=== PATIENT | male | born 1975 | race Two or more races ===

== ENCOUNTER 2017-07-19 17:28 | Emergency (ER) | payer OTHER ==
[2017-07-19] MEDS: IPRATRPIUM/ALBUTEROL 0.5/2.5MG 3 ML NEBU. NEB (18:23)
[2017-07-19 18:30] LABS: INFLUENZA A PATIENT NEGATIVE (NEGATIVE); INFLUENZA B PATIENT NEGATIVE (NEGATIVE); OBC FLU VALID
== END 2017-07-19 19:27 | disposition home or self-care (01) ==
LOC: ER 19:27
DX: J06.9 Acute upper respiratory infection, unspecified (principal); K12.1 Other forms of stomatitis; S46.912A Strain of unspecified muscle, fascia and tendon at shoulder and upper arm level, left arm, initial encounter; X58.XXXA Exposure to other specified factors, initial encounter; Y93.89 Activity, other specified; Y92.89 Other specified places as the place of occurrence of the external cause; Y99.8 Other external cause status
CPT/HCPCS: 73000; 87804; 87804-59; 94640; 99285; J7620

== ENCOUNTER 2017-07-25 19:02 | Emergency (ER) | payer OTHER | END 2017-07-25 21:30 | disposition home or self-care (01) | LOC: ER 19:02 | DX: M25.512 Pain in left shoulder (principal); M75.92 Shoulder lesion, unspecified, left shoulder; X50.0XXA Overexertion from strenuous movement or load, initial encounter; Y93.89 Activity, other specified; Y92.89 Other specified places as the place of occurrence of the external cause; Y99.8 Other external cause status | CPT/HCPCS: 73030; 99284 ==

== ENCOUNTER → 2019-01-22 | Outpatient (CLI) | payer OTHER ==
[2017-07-25 20:22] VITALS: BP 132/75
[~2019-01-22] MED LIST: PRED20TA PO; TRAM50TA PO
--- NOTE | 2019-01-22 09:51 | CARD ---
MR#: [id number] Date of Study: 01/22/2019 Ordering Physician: MI KIMBROUGH, Referring Physician: MI KIMBROUGH Tech: Teresa Wells RDCS APPROVED REPORT EXAM: Two-dimensional and M-mode echocardiogram with Doppler and color Doppler. Other Information Quality : GoodHR: 63bpm Rhythm : NSR INDICATION Palpitations 2D DIMENSIONS RVDd2.1 (2.9-3.5cm)Left Atrium(2D)3.9 (1.6-4.0cm) IVSd1.2 (0.7-1.1cm)Aortic Root(2D)3.1 (2.0-3.7cm) LVDd5.8 (3.9-5.9cm)LVOT Diameter2.3 (1.8-2.4cm) PWd0.9 (0.7-1.1cm)LVDs3.8 (2.5-4.0cm) FS (%) 34.1 %SV103.1 ml LVEF(%)62.4 (>50%) M-Mode DIMENSIONS Left Atrium(MM)3.75 (2.5-4.0cm)Aortic Root3.40 (2.2-3.7cm) Aortic Valve AoV Peak Mo.301.1cm/sAoV VTI71.4cm AO Peak GR.36.3mmHgLVOT Peak Mo.126.7cm/s AO Mean GR.20mmHgAVA (VMAX)1.71cm2 KASSI (VTI)1.34yp4CK P 1/2 [id number] Mitral Valve MV E Gqoeeiit78.2cm/sMV E Peak Gr.6mmHg MV DECEL [id number] A Huducxwg05.0cm/s MV E Mean Gr.3mmHgE/A Ratio0.8 Pulmonary Valve PV Peak Orczyokp465.9cm/s Tricuspid Valve TR P. Nokwbjyi651uk/sRAP LGKOYXEI2umQl TR Peak Gr.37ptLoEDVA82gfCl Pulmonary Vein S1 Xfziwcrz49.3cm/sD2 Jzohyfzy16.7cm/s LEFT VENTRICLE The Left Ventricle is mildly dilated. There is moderate concentric left ventricular hypertrophy. The left ventricular systolic function is normal and the ejection fraction is within normal range. The Ej ection Fraction is 55-60%. There is normal LV segmental wall motion. Transmitral Doppler flow pattern is Grade I-abnormal relaxation pattern. RIGHT VENTRICLE The right ventricle is normal size. There is normal right ventricular wall thickness. The right ventr icular systolic function is normal. ATRIA The left atrium is borderline dilated. The right atrium size is normal. The interatrial septum is int act with no evidence for an atrial septal defect or patent foramen ovale as noted on 2-D or Doppler i maging. AORTIC VALVE The aortic valve is mildly calcified. The aortic valve is trileaflet. Doppler and Color Flow revealed moderate aortic regurgitation. The velocites are increased across the aortic valve but the valve ope ns well with a maximum pressure gradient of 36 mmHg and mean pressure gradient of 19 mmHg. MITRAL VALVE The mitral valve is thickened but opens well. 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 No sign ificant stenosis or regurgitation. A mild mitral valve prolapse is present. There is no mitral valve stenosis. Doppler and Color-flow revealed mild mitral regurgitation. TRICUSPID VALVE The tricuspid valve is normal in structure and function. Doppler and Color Flow revealed trace to mil d tricuspid regurgitation. The PA pressure was estimated at 24 mmHg. There is no tricuspid valve prol apse or vegetation. There is no tricuspid valve stenosis. PULMONIC VALVE Doppler and Color Flow revealed trace to mild pulmonic valvular regurgitation. There is no pulmonic v alvular stenosis. GREAT VESSELS The aortic root is normal in size. The ascending aorta is normal in size. The IVC is normal in size a nd collapses >50% with inspiration. PERICARDIAL EFFUSION There is no evidence of significant pericardial effusion. Critical Notification Critical Value: No <Conclusion> There is moderate concentric left ventricular hypertrophy. The left ventricular systolic function is normal and the ejection fraction is within normal range. Th e Ejection Fraction is 55-60%. Doppler and Color Flow revealed moderate aortic regurgitation. The mitral valve is thickened but opens well. 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 No sign ificant stenosis or regurgitation. Signed by : Matt Ross, Electronically Approved : 01/22/2019 09:51:06
== END | disposition home or self-care (01) ==
LOC: ECHO 08:37
PROVIDERS: ATTEND Internal Medicine Cardiovascular Disease
DX: I08.8 Other rheumatic multiple valve diseases (principal)
CPT/HCPCS: 93306

== ENCOUNTER 2021-04-11 14:27 | Emergency (ER) | payer OTHER ==
[~2021-04-11] VITALS: Ht 157.5 cm; Wt 67.0 kg
[2021-04-11 15:50] VITALS: BP 138/65
--- NOTE | 2021-04-11 16:18 | RAD ---
CT Head W/O Contrast: History: Reason: head for three months / Spl. Instructions: / History: Comparison: none Axial images were obtained without contrast. The olsen and white matter appears normal and symmetrical for the patients age. There is no mass effe ct, extraaxial fluid collections or hydrocephalus. There is no gross bleed. There is no focal loss of olsen-white matter distinction to suggest acute ischemia, i.e. stroke. Impression: No acute findings. RS Compliance Statement: One or more of the following individualized dose reduction techniques were utilized for this examinat ion: 1. Automated exposure control 2. Adjustment of the mA and/or kV according to patient size 3. Use of iterative reconstruction technique see Electronically signed by: Sai Logan III, MD (04/11/2021 4:15 PM) [facility]
--- NOTE | 2021-04-11 17:02 | PHYS DOC ---
Past Medical History Past Medical History: No Pertinent History Past Surgical History: No Surgical History Smoking Status: Never Smoker Alcohol Use: Heavy Drug Use: None General Adult EDM: Chief Complaint: HEADACHE HPI: HPI: Patient is a 45 year old male with no significant medical history who presents the ED today complaining of intermittent episodes of mild headaches, symptoms have been going on for 3 months. Patient denies any headache in the ED right now. Denies any nausea vomiting or fever. Denies any neck pain. Denies any coughing or congestion. He states he is fully vaccinated against COVID-19. Review of Systems: Review of Systems: Constitutional: Denies fever or chills. [] Eyes: Denies change in visual acuity. [] HENT: Denies nasal congestion or sore throat. [] Respiratory: Denies cough or shortness of breath. [] Cardiovascular: Denies chest pain or edema. [] GI: Denies abdominal pain, nausea, vomiting, bloody stools or diarrhea. [] : Denies dysuria. [] Musculoskeletal: Denies back pain or joint pain. [] Integument: Denies rash. [] Neurologic: Reports headache, denies focal weakness or sensory changes. [] Psychiatric: Denies depression or anxiety. [] Heart Score: C/O Chest Pain: N/A Risk Factors: Risk Factors: DM, Current or recent (<one month) smoker, HTN, HLP, family history of CAD, obesity. Risk Scores: Score 0 - 3: 2.5% MACE over next 6 weeks - Discharge Home Score 4 - 6: 20.3% MACE over next 6 weeks - Admit for Clinical Observation Score 7 - 10: 72.7% MACE over next 6 weeks - Early Invasive Strategies Allergies: Allergies: Allergies Coded Allergies Type Severity Reaction Last Updated Verified No Known Drug Allergies 07/19/17 No Physical Exam: PE: Constitutional: Well developed, well nourished, no acute distress, non-toxic appearance. [] HENT: Normocephalic, atraumatic, bilateral external ears normal, oropharynx moist, no oral exudates, nose normal. [] Eyes: PERRLA, EOMI, conjunctiva normal, no discharge. [] Neck: Normal range of motion, no tenderness, supple, no stridor. [] Cardiovascular:Heart rate regular rhythm, no murmur [] Lungs & Thorax: Bilateral breath sounds clear to auscultation [] Abdomen: Bowel sounds normal, soft, no tenderness, no masses, no pulsatile masses. [] Skin: Warm, dry, no erythema, no rash. [] Back: No tenderness, no CVA tenderness. [] Extremities: No tenderness, no cyanosis, no clubbing, ROM intact, no edema. [] Neurologic: Alert and oriented X 3, normal motor function, normal sensory function, no focal deficits noted. Cranial nerves II through XII intact Psychologic: Affect normal, judgement normal, mood normal. [] Current Patient Data: Vital Signs: Vital Signs Date Time Temp Pulse Resp B/P (MAP) Pulse Ox O2 Delivery O2 Flow Rate FiO2 04/11/21 15:50 98.2 61 16 138/65 (89) 98 Room Air 98.2 EKG: EKG: [] Radiology/Procedures: Radiology/Procedures: []PROCEDURE: CT HEAD WO CONTRAST CT Head W/O Contrast: History: Reason: head for three months / Spl. Instructions: / History: Comparison: none Axial images were obtained without contrast. The olsen and white matter appears normal and symmetrical for the patients age. There is no mass effect, extraaxial fluid collections or hydrocephalus. There is no gross bleed. There is no focal loss of olsen-white matter distinction to suggest acute ischemia, i.e. stroke. Impression: No acute findings. RS Compliance Statement: One or more of the following individualized dose reduction techniques were utilized for this examination: 1. Automated exposure control 2. Adjustment of the mA and/or kV according to patient size 3. Use of iterative reconstruction technique see Electronically signed by: Demi Zepeda III, MD (04/11/2021 4:15 PM) [facility] DICTATED and SIGNED BY: DEMI ZEPEDA III, MD DATE: 04/11/21 [id number] 0 Course & Med Decision Making: Course & Med Decision Making Pertinent Labs and Imaging studies reviewed. (See chart for details) This is a 45-year-old male patient presented to the ED today with intermittent episodes of headaches symptoms for 3 months. No headache in the ED. CT of the head is negative. Blood pressure 138/65 with a heart rate of 61. Patient was reassured. I recommended Tylenol or Motrin for his pain. 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 Departure Departure Impression: Primary Impression: Headache Qualified Codes: R51.9 - Headache, unspecified Disposition: HOME / SELF CARE / HOMELESS Condition: STABLE Referrals: REFUGIO JACKSON MD (PCP) follow up in 1 week LJ ALCOCER MD follow up in one week Patient Instructions: Headache, FAQs Additional Instructions: You were evaluated in the emergency room for headache. Your CT of the head is negative for any acute findings. Please follow-up with your primary care doctor as well as neurologist in 1 to 2 weeks. Take the prescribed medications as ordered VICENTA KELLEY APRN Apr 11, 2021 17:02
== END 2021-04-11 17:15 | disposition home or self-care (01) ==
LOC: ER 14:27
DX: R51.9 Headache, unspecified (principal)
CPT/HCPCS: 70450; 99284-25

== ENCOUNTER 2021-05-12 11:27 | Observation (INO) | payer OTHER ==
[2021-05-12] VITALS (9 sets, daily range): BP systolic 94–122; BP diastolic 48–69
[~2021-05-12] VITALS: Ht 154.9 cm; Wt 65.9 kg
[2021-05-12] MEDS ORDERED: MORPHINE SULFATE 4 MG/ML INJ. IVP ONE (11:45)
--- NOTE | 2021-05-12 11:45 | PHYS DOC ---
Past Medical History Past Medical History: No Pertinent History Past Surgical History: No Surgical History Smoking Status: Never Smoker Alcohol Use: Heavy Drug Use: None General Adult EDM: Chief Complaint: ABDOMINAL PAIN HPI: HPI: Patient is a 45 year old [place] speaking male without pertinent past medical history who presents with left lower quadrant pain starting at 8:30 AM this morning. Has worsened consistently since. Denies nausea, vomiting, or diarrhea. Denies bloody stools. Denies dysuria, urgency, frequency, or hematuria. Tried ibuprofen which did not help his pain. No history of similar pain in the past. Review of Systems: Review of Systems: Constitutional: Denies fever or chills. [] Eyes: Denies change in visual acuity. [] HENT: Denies nasal congestion or sore throat. [] Respiratory: Denies cough or shortness of breath. [] Cardiovascular: Denies chest pain or edema. [] GI: Reports left lower quadrant abdominal pain. Denies nausea, vomiting, bloody stools or diarrhea. [] : Denies dysuria. [] Musculoskeletal: Denies back pain or joint pain. [] Integument: Denies rash. [] Neurologic: Denies headache, focal weakness or sensory changes. [] Endocrine: Denies polyuria or polydipsia. [] Lymphatic: Denies swollen glands. [] Psychiatric: Denies depression or anxiety. [] Heart Score: C/O Chest Pain: No Risk Factors: Risk Factors: DM, Current or recent (<one month) smoker, HTN, HLP, family history of CAD, obesity. Risk Scores: Score 0 - 3: 2.5% MACE over next 6 weeks - Discharge Home Score 4 - 6: 20.3% MACE over next 6 weeks - Admit for Clinical Observation Score 7 - 10: 72.7% MACE over next 6 weeks - Early Invasive Strategies Current Medications: Current Medications Medications (Trade) Dose Ordered Sig/Farzaneh Start Time Stop Time Status Last Admin Dose Admin Morphine Sulfate (Morphine Sulfate) 4 mg 1X ONCE 05/12/21 11:45 05/12/21 11:46 UNV Allergies: Allergies: Allergies Coded Allergies Type Severity Reaction Last Updated Verified No Known Drug Allergies 07/19/17 No Physical Exam: PE: Constitutional in acute distress, clutching left lower abdomen, moaning HENT: Normocephalic, atraumatic Eyes: PERRLA, EOMI, conjunctiva normal, no discharge. [] Neck: Normal range of motion, no tenderness, supple, no stridor. [] Cardiovascular:Heart rate regular rhythm, no murmur [] Lungs & Thorax: Bilateral breath sounds clear to auscultation [] Abdomen: Left lower quadrant tenderness to palpation Skin: Warm, dry, no erythema, no rash. [] Extremities: No tenderness, no cyanosis, no clubbing, ROM intact, no edema. [] Neurologic: Alert and oriented X 3, normal motor function, normal sensory function, no focal deficits noted. [] Psychologic: Affect normal, judgement normal, mood normal. [] EKG: EKG: [] Radiology/Procedures: Radiology/Procedures: [] Impression: [facility] [address] [place], [place] [id number] IMAGING REPORT Signed PATIENT: Alfred Carson ACCOUNT: [id number] : 1975 LOCATION: ER AGE: 45 SEX: M EXAM STATUS: REG ER ORD. PHYSICIAN: ZHENG ALEXANDER MD REASON: left lower quadrant pain PROCEDURE: CT ABD PELV W/ IV CONTRST ONLY CT abdomen and pelvis with contrast PQRS statement: CT scans at this facility use dose reduction including either automated exposure control, iterative reconstructions, and /or weight based radiation dosing via mA and kV modification when appropriate to reduce radiation dose to as low as reasonably achievable. HISTORY: Left lower quadrant abdominal pain. Contrast: 75 mL Omnipaque 300 intravenous contrast. Abdomen findings: Small subcentimeter hypodensity left renal upper pole too small to characterize statistically most likely a small cyst. Right kidney, adrenals, pancreas, spleen, liver and gallbladder are unremarkable. Calcified plaque of the lower abdominal aorta. There is mild cardiomegaly. No bowel obstruction. Retrocecal appendix is distended with fluid, there is a tiny subcentimeter density at its base which could be an appendicolith, the appendix has a diameter of 9 mm, there is subtle hypervascular wall enhancement of the tip of the appendix, there is quetsionable mild groundglass edema extending left lateral of the tip of the appendix best demonstrated axial images 43-47 raising the possibility of very early changes of appendicitis. No abdominal fluid or adenopathy. Pelvis findings: Bladder, prostate, rectum and bones are unremarkable. IMPRESSION: Probable early changes of acute appendicitis. See above. Electronically signed by: Sandoval Patel MD (05/12/2021 1:30 PM) [facility] [place] DICTATED and SIGNED BY: SANDOVAL PATEL MD DATE: 05/12/21 [id number] 0 Course & Med Decision Making: Course & Med Decision Making Pertinent Labs and Imaging studies reviewed. (See chart for details) Patient 45-year-old male who presents with left lower quadrant pain since 8:30 AM this morning. On arrival is in acute distress and moaning in pain. DDx includes ureterolithiasis, diverticulitis +/- perforation, abscess. Will treat pain and obtain lab, ua, ct evaluation. 1144 CT concerning for early appendicitis. WBC normal. He continues to be in significant pain, requiring multiple doses of IV narcotics. Will give zosyn, and discuss with surgery. [id number] José Miguel Disclaimer: José Miguel Disclaimer: This electronic medical record was generated, in whole or in part, using a voice recognition dictation system. Departure Departure Impression: Primary Impression: Appendicitis Disposition: ADMITTED INPATIENT Condition: STABLE Referrals: REFUGIO JACKSON MD (PCP) ZHENG ALEXANDER MD May 12, 2021 11:44
[2021-05-12 12:01] LABS: CALCIUM 8.5 mg/dL (8.5-10.1); CREATININE 0.9 mg/dL (0.7-1.3); GFR 90.4; POTASSIUM 3.9 mmol/L (3.5-5.1)
[2021-05-12 12:03] LABS: BASO % 1 % (0-3); EOS # 0.1 x10^3/uL (0.0-0.7); EOS % 1 % (0-3); HEMATOCRIT 44.7 % (39.0-53.0); HEMOGLOBIN 15.3 g/dL (13.0-17.5); LYMPH # 1.6 x10^3/uL (1.0-4.8); LYMPH % 16 % (24-48); MEAN CORPUSCULAR HEMOGLOBIN 30 pg (25-35); MEAN CORPUSCULAR HGB CONC 34 g/dL (31-37); MEAN CORPUSCULAR VOLUME 87 fL (79-100); MONO # 0.6 x10^3/uL (0.0-1.1); MONO % 6 % (0-9); NEUT # 7.3 x10^3/uL (1.8-7.7); NEUT % 76 % (31-73); PLATELET COUNT 191 x10^3/uL (140-400); RED BLOOD COUNT 5.17 x10^6/uL (4.30-5.70); RED CELL DISTRIBUTION WIDTH 12.1 % (11.5-14.5); WHITE BLOOD COUNT 9.6 x10^3/uL (4.0-11.0)
[2021-05-12 12:07] LABS: ALBUMIN 4.2 g/dL (3.4-5.0); ALBUMIN/GLOBULIN RATIO 1.1 (1.0-1.7); TOTAL BILIRUBIN 0.6 mg/dL (0.2-1.0); TOTAL PROTEIN 8.1 g/dL (6.4-8.2)
[2021-05-12] MEDS ORDERED: CONTRAST GIVEN. MC PRN (12:45)
[2021-05-12] MEDS ORDERED: IOHEXOL 300 MG/ML 100ML VIAL. IV ONE (12:45)
[2021-05-12 13:07] LABS: BILIRUBIN,URINE NEGATIVE (NEG); CLARITY,URINE CLEAR; COLOR,URINE YELLOW; NITRITE,URINE NEGATIVE (NEG); PH,URINE 6.5 (<5.0-8.0); PROTEIN,URINE NEGATIVE (NEG-TRACE); UROBILINOGEN,URINE 0.2 mg/dL (0.2 mg/dL)
[2021-05-12 13:26] LABS: BACTERIA,URINE 0 /HPF (0-FEW); RBC,URINE 0 /HPF (0-2); WBC,URINE OCC /HPF (0-4)
[2021-05-12] MEDS ORDERED: MORPHINE SULFATE 10 MG/ML VIAL. IVP ONE (13:30)
--- NOTE | 2021-05-12 13:32 | RAD ---
CT abdomen and pelvis with contrast PQRS statement: CT scans at this facility use dose reduction including either automated exposure cont rol, iterative reconstructions, and /or weight based radiation dosing via mA and kV modification when appropriate to reduce radiation dose to as low as reasonably achievable. HISTORY: Left lower quadrant abdominal pain. Contrast: 75 mL Omnipaque 300 intravenous contrast. Abdomen findings: Small subcentimeter hypodensity left renal upper pole too small to characterize sta tistically most likely a small cyst. Right kidney, adrenals, pancreas, spleen, liver and gallbladder are unremarkable. Calcified plaque of the lower abdominal aorta. There is mild cardiomegaly. No bowel obstruction. Retrocecal appendix is distended with fluid, there is a tiny subcentimeter density at i ts base which could be an appendicolith, the appendix has a diameter of 9 mm, there is subtle hyperva scular wall enhancement of the tip of the appendix, there is quetsionable mild groundglass edema exte nding left lateral of the tip of the appendix best demonstrated axial images 43-47 raising the possib ility of very early changes of appendicitis. No abdominal fluid or adenopathy. Pelvis findings: Bladder, prostate, rectum and bones are unremarkable. IMPRESSION: Probable early changes of acute appendicitis. See above. Electronically signed by: Jordan Patel MD (05/12/2021 1:30 PM) [facility]
[2021-05-12] MEDS ORDERED: ONDANSETRON PF 4 MG/2 ML VIAL. IVP PRN ×2 (14:00→15:30)
[2021-05-12] MEDS ORDERED: MORPHINE SULFATE 4 MG/ML INJ. IVP PRN (14:00)
[2021-05-12] MEDS ORDERED: PIPERACILLIN/TAZOBACTAM 4.5 GM in IV NORMAL SALINE 100ML 100 ML IV ONE (14:15)
[2021-05-12] MEDS ORDERED: BUPIVACAINE-EPI 0.5% 30 ML VIAL KIT. ONE (14:15)
[2021-05-12] MEDS ORDERED: SUCCINYLCHOLINE 200 MG/10 ML VIAL. ONE (14:47)
[2021-05-12] MEDS ORDERED: ROCURONIUM 50 MG/5 ML VIAL. ONE (14:48)
[2021-05-12] MEDS ORDERED: fentaNYL PF VIAL 100 MCG/2 ML VIAL ONE ×2 (14:49→17:00)
[2021-05-12] MEDS ORDERED: MORPHINE SULFATE 2 MG/ML INJ. IVP PRN (15:00)
[2021-05-12] MEDS ORDERED: fentaNYL PF VIAL 100 MCG/2 ML VIAL IVP PRN (15:00)
[2021-05-12] MEDS ORDERED: PROCHLORPERAZINE 10 MG/2 ML VIAL. IVP PRN (15:00)
[2021-05-12] MEDS ORDERED: HYDROmorphone 2 MG/ML VIAL IVP PRN (15:00)
[2021-05-12] MEDS ORDERED: IV RINGERS,LACTATED 1000ML 1,000 ML IV SCH (15:00)
--- NOTE | 2021-05-12 15:10 | PDOC2 ---
CONSULT Date of Consult Date of Consult DATE: 05/12/21 TIME: 15:07 Reason for Consult Reason for Consult: Abdominal pain with acute appendicitis Referring Physician Referring Physician: eleazar Identification/Chief Complaint Chief Complaint Abdominal pain Source Source: Chart review, Patient History of Present Illness Reason for Visit: 45-year-old Belgian speaking male with 18-hour history of abdominal pain coming worse came to the emergency department further evaluation. Denies any nausea or vomiting. CT scan done in the emergency department shows signs consistent with early appendicitis no evidence of rupture or abscess Past Medical History Cardiovascular: No pertinent hx Pulmonary: No pertinent hx GI: No pertinent hx Heme/Onc: No pertinent hx Hepatobiliary: No pertinent hx Psych: No pertinent hx Rheumatologic: No pertinent hx Infectious disease: No pertinent hx ENT: No pertinent hx Renal/: No pertinent hx Endocrine: No pertinent hx Dermatology: No pertinent hx Past Surgical History Past Surgical History: No pertinent history Family History Family History: No Significant Social History No ALCOHOL: heavy Drugs: None Lives: with Family Current Problem List Problem List Problems Medical Problems: (1) Appendicitis Status: Acute Current Medications Current Medications Current Medications Morphine Sulfate (Morphine Sulfate) 4 mg 1X ONCE IVP Last administered on 05/12/21at 11:53; Start 05/12/21 at 11:45; Stop 05/12/21 at 11:46; Status DC Iohexol (Omnipaque 300 Mg/ml) 75 ml 1X ONCE IV Last administered on 05/12/21at 12:36; Start 05/12/21 at 12:45; Stop 05/12/21 at 12:46; Status DC Info (CONTRAST GIVEN -- Rx MONITORING) 1 each PRN DAILY PRN MC SEE COMMENTS; Start 05/12/21 at 12:45; Stop 05/14/21 at 12:44 Morphine Sulfate (Morphine Sulfate) 5 mg 1X ONCE IVP Last administered on 05/12/21at 13:38; Start 05/12/21 at 13:30; Stop 05/12/21 at 13:31; Status DC Piperacillin Sod/ Tazobactam Sod 4.5 gm/Sodium Chloride 100 ml @ 200 mls/hr 1X ONCE IV Last administered on 05/12/21at 14:00; Start 05/12/21 at 14:15; Stop 05/12/21 at 14:44; Status DC Ondansetron HCl (Zofran) 4 mg PRN Q8HRS PRN IVP NAUSEA/VOMITING; Start 05/12/21 at 14:00; Stop 05/13/21 at 13:59 Morphine Sulfate (Morphine Sulfate) 4 mg PRN Q2HR PRN IVP PAIN; Start 05/12/21 at 14:00; Stop 05/13/21 at 13:59 Bupivacaine HCl/ Epinephrine Bitart (Sensorcain-Epi 0.5% Kit) 30 ml STK-MED ONCE .ROUTE ; Start 05/12/21 at 14:15; Stop 05/12/21 at 14:16; Status DC Succinylcholine Chloride (Anectine) 200 mg STK-MED ONCE .ROUTE ; Start 05/12/21 at 14:47; Stop 05/12/21 at 14:48; Status DC Rocuronium [place] (Zemuron) 50 mg STK-MED ONCE .ROUTE ; Start 05/12/21 at 14:48; Stop 05/12/21 at 14:48; Status DC Fentanyl Citrate (Fentanyl 2ml Vial) 100 mcg STK-MED ONCE .ROUTE ; Start 05/12/21 at 14:49; Stop 05/12/21 at 14:49; Status DC Fentanyl Citrate (Fentanyl 2ml Vial) 25 mcg PRN Q5MIN PRN IVP MILD PAIN 1-3; Start 05/12/21 at 15:00; Stop 05/13/21 at 14:59 Fentanyl Citrate (Fentanyl 2ml Vial) 50 mcg PRN Q5MIN PRN IVP MODERATE PAIN 4- 6; Start 05/12/21 at 15:00; Stop 05/13/21 at 14:59 Morphine Sulfate (Morphine Sulfate) 1 mg PRN Q10MIN PRN IVP SEVERE PAIN 7-10; Start 05/12/21 at 15:00; Stop 05/13/21 at 14:59 Ringer's Solution 1,000 ml @ 30 mls/hr Q24H IV ; Start 05/12/21 at 15:00; Stop 05/13/21 at 02:59 Hydromorphone HCl (Dilaudid) 0.5 mg PRN Q10MIN PRN IVP SEVERE PAIN 7-10, 2nd CHOICE; Start 05/12/21 at 15:00; Stop 05/13/21 at 14:59 Prochlorperazine Edisylate (Compazine) 5 mg PACU PRN PRN IVP NAUSEA, MRX1; S tart 05/12/21 at 15:00; Stop 05/13/21 at 14:59 Active Scripts Active Prednisone 20 Mg Tablet 2 Tab PO DAILY 5 Days Tramadol Hcl 50 Mg Tablet 1 Tab PO PRN Q6HRS Allergies Allergies: Coded Allergies: No Known Drug Allergies (Unverified , 07/19/17) ROS Gastrointestinal: Yes Abdominal Pain Physical Exam General: Alert, Oriented X3, Cooperative, moderate distress HEENT: Atraumatic, EOMI Lungs: Clear to auscultation, Normal air movement Heart: Regular rate, No murmurs Abdomen: Normal bowel sounds, Soft, Other (Tender to palpation right lower quadrant no peritoneal sign) Extremities: No edema Skin: No significant lesion Neuro: Normal speech Psych/Mental Status: Mental status NL Vitals VITALS Vital Signs Date Time Temp Pulse Resp B/P (MAP) Pulse Ox O2 Delivery O2 Flow Rate FiO2 05/12/21 14:55 97.0 69 16 116/67 98 Room Air 97.0 Labs Labs Laboratory Tests Test 05/12/21 11:45 05/12/21 12:55 White Blood Count 9.6 x10^3/uL (4.0-11.0) Red Blood Count 5.17 x10^6/uL (4.30-5.70) Hemoglobin 15.3 g/dL (13.0-17.5) Hematocrit 44.7 % (39.0-53.0) Mean Corpuscular Volume 87 fL (79-100) Mean Corpuscular Hemoglobin 30 pg (25-35) Mean Corpuscular Hemoglobin Concent 34 g/dL (31-37) Red Cell Distribution Width 12.1 % (11.5-14.5) Platelet Count 191 x10^3/uL (140-400) Neutrophils (%) (Auto) 76 % (31-73) Lymphocytes (%) (Auto) 16 % (24-48) Monocytes (%) (Auto) 6 % (0-9) Eosinophils (%) (Auto) 1 % (0-3) Basophils (%) (Auto) 1 % (0-3) Neutrophils # (Auto) 7.3 x10^3/uL (1.8-7.7) Lymphocytes # (Auto) 1.6 x10^3/uL (1.0-4.8) Monocytes # (Auto) 0.6 x10^3/uL (0.0-1.1) Eosinophils # (Auto) 0.1 x10^3/uL (0.0-0.7) Basophils # (Auto) 0.0 x10^3/uL (0.0-0.2) Sodium Level 139 mmol/L (136-145) Potassium Level 3.9 mmol/L (3.5-5.1) Chloride Level 101 mmol/L (98-107) Carbon Dioxide Level 30 mmol/L (21-32) Anion Gap 8 (6-14) Blood Urea Nitrogen 14 mg/dL (8-26) Creatinine 0.9 mg/dL (0.7-1.3) Estimated GFR (Cockcroft-Gault) 90.4 BUN/Creatinine Ratio 16 (6-20) Glucose Level 108 mg/dL (70-99) Calcium Level 8.5 mg/dL (8.5-10.1) Total Bilirubin 0.6 mg/dL (0.2-1.0) Aspartate Amino Transf (AST/SGOT) 34 U/L (15-37) Alanine Aminotransferase (ALT/SGPT) 43 U/L (16-63) Alkaline Phosphatase 62 U/L (46-116) Total Protein 8.1 g/dL (6.4-8.2) Albumin 4.2 g/dL (3.4-5.0) Albumin/Globulin Ratio 1.1 (1.0-1.7) Lipase 51 U/L (73-393) Urine Collection Type Unknown Urine Color Yellow Urine Clarity Clear Urine pH 6.5 (<5.0-8.0) Urine Specific [place] >=1.030 (1.000-1.030) Urine Protein Negative mg/dL (NEG-TRACE) Urine Glucose (UA) Negative mg/dL (NEG) Urine Ketones (Stick) Negative mg/dL (NEG) Urine Blood Negative (NEG) Urine Nitrite Negative (NEG) Urine Bilirubin Negative (NEG) Urine Urobilinogen Dipstick 0.2 mg/dL (0.2 mg/dL) Urine Leukocyte Esterase Negative (NEG) Urine RBC 0 /HPF (0-2) Urine WBC Occ /HPF (0-4) Urine Squamous Epithelial Cells Occ /LPF Urine Bacteria 0 /HPF (0-FEW) Laboratory Tests Test 11/18/21 11:45 05/12/21 12:55 White Blood Count 9.6 x10^3/uL (4.0-11.0) Red Blood Count 5.17 x10^6/uL (4.30-5.70) Hemoglobin 15.3 g/dL (13.0-17.5) Hematocrit 44.7 % (39.0-53.0) Mean Corpuscular Volume 87 fL (79-100) Mean Corpuscular Hemoglobin 30 pg (25-35) Mean Corpuscular Hemoglobin Concent 34 g/dL (31-37) Red Cell Distribution Width 12.1 % (11.5-14.5) Platelet Count 191 x10^3/uL (140-400) Neutrophils (%) (Auto) 76 % (31-73) Lymphocytes (%) (Auto) 16 % (24-48) Monocytes (%) (Auto) 6 % (0-9) Eosinophils (%) (Auto) 1 % (0-3) Basophils (%) (Auto) 1 % (0-3) Neutrophils # (Auto) 7.3 x10^3/uL (1.8-7.7) Lymphocytes # (Auto) 1.6 x10^3/uL (1.0-4.8) Monocytes # (Auto) 0.6 x10^3/uL (0.0-1.1) Eosinophils # (Auto) 0.1 x10^3/uL (0.0-0.7) Basophils # (Auto) 0.0 x10^3/uL (0.0-0.2) Sodium Level 139 mmol/L (136-145) Potassium Level 3.9 mmol/L (3.5-5.1) Chloride Level 101 mmol/L (98-107) Carbon Dioxide Level 30 mmol/L (21-32) Anion Gap 8 (6-14) Blood Urea Nitrogen 14 mg/dL (8-26) Creatinine 0.9 mg/dL (0.7-1.3) Estimated GFR (Cockcroft-Gault) 90.4 BUN/Creatinine Ratio 16 (6-20) Glucose Level 108 mg/dL (70-99) Calcium Level 8.5 mg/dL (8.5-10.1) Total Bilirubin 0.6 mg/dL (0.2-1.0) Aspartate Amino Transf (AST/SGOT) 34 U/L (15-37) Alanine Aminotransferase (ALT/SGPT) 43 U/L (16-63) Alkaline Phosphatase 62 U/L (46-116) Total Protein 8.1 g/dL (6.4-8.2) Albumin 4.2 g/dL (3.4-5.0) Albumin/Globulin Ratio 1.1 (1.0-1.7) Lipase 51 U/L (73-393) Urine Collection Type Unknown Urine Color Yellow Urine Clarity Clear Urine pH 6.5 (<5.0-8.0) Urine Specific [place] >=1.030 (1.000-1.030) Urine Protein Negative mg/dL (NEG-TRACE) Urine Glucose (UA) Negative mg/dL (NEG) Urine Ketones (Stick) Negative mg/dL (NEG) Urine Blood Negative (NEG) Urine Nitrite Negative (NEG) Urine Bilirubin Negative (NEG) Urine Urobilinogen Dipstick 0.2 mg/dL (0.2 mg/dL) Urine Leukocyte Esterase Negative (NEG) Urine RBC 0 /HPF (0-2) Urine WBC Occ /HPF (0-4) Urine Squamous Epithelial Cells Occ /LPF Urine Bacteria 0 /HPF (0-FEW) Assessment/Plan Assessment/Plan Acute appendicitis by CT scan and clinical symptoms plan for laparoscopic appendectomy RAPHAEL AWAD MD May 12, 2021 15:10
--- NOTE | 2021-05-12 15:25 | PDOC1 ---
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 Has worsened consistently since. Denies nausea, vomiting, or diarrhea. Denies bloody stools. Denies dysuria, urgency, frequency, or hematuria. Tried ibuprofen which did not help his pain. No history of similar pain in the past. Past Medical/Surgical History: PMH/PSH: Denies Allergies: Allergies: Coded Allergies: No Known Drug Allergies (Unverified , 07/19/17) Family History: Family History: No known per patient Social History: Social History: Denies alcohol tobacco drug use Current Medications: Current Medications Current Medications Morphine Sulfate (Morphine Sulfate) 4 mg 1X ONCE IVP Last administered on 05/12/21at 11:53; Start 05/12/21 at 11:45; Stop 05/12/21 at 11:46; Status DC Iohexol (Omnipaque 300 Mg/ml) 75 ml 1X ONCE IV Last administered on 05/12/21at 12:36; Start 05/12/21 at 12:45; Stop 05/12/21 at 12:46; Status DC Info (CONTRAST GIVEN -- Rx MONITORING) 1 each PRN DAILY PRN MC SEE COMMENTS; Start 05/12/21 at 12:45; Stop 05/14/21 at 12:44 Morphine Sulfate (Morphine Sulfate) 5 mg 1X ONCE IVP Last administered on 05/12/21at 13:38; Start 05/12/21 at 13:30; Stop 05/12/21 at 13:31; Status DC Piperacillin Sod/ Tazobactam Sod 4.5 gm/Sodium Chloride 100 ml @ 200 mls/hr 1X ONCE IV Last administered on 05/12/21at 14:00; Start 05/12/21 at 14:15; Stop 05/12/21 at 14:44; Status DC Ondansetron HCl (Zofran) 4 mg PRN Q8HRS PRN IVP NAUSEA/VOMITING; Start 05/12/21 at 14:00; Stop 05/13/21 at 13:59 Morphine Sulfate (Morphine Sulfate) 4 mg PRN Q2HR PRN IVP PAIN; Start 05/12/21 at 14:00; Stop 05/13/21 at 13:59 Bupivacaine HCl/ Epinephrine Bitart (Sensorcain-Epi 0.5% Kit) 30 ml STK-MED ONCE .ROUTE ; Start 05/12/21 at 14:15; Stop 05/12/21 at 14:16; Status DC Succinylcholine Chloride (Anectine) 200 mg STK-MED ONCE .ROUTE ; Start 05/12/21 at 14:47; Stop 05/12/21 at 14:48; Status DC Rocuronium [place] (Zemuron) 50 mg STK-MED ONCE .ROUTE ; Start 05/12/21 at 14:48; Stop 05/12/21 at 14:48; Status DC Fentanyl Citrate (Fentanyl 2ml Vial) 100 mcg STK-MED ONCE .ROUTE ; Start 05/12/21 at 14:49; Stop 05/12/21 at 14:49; Status DC Fentanyl Citrate (Fentanyl 2ml Vial) 25 mcg PRN Q5MIN PRN IVP MILD PAIN 1-3; Start 05/12/21 at 15:00; Stop 05/13/21 at 14:59 Fentanyl Citrate (Fentanyl 2ml Vial) 50 mcg PRN Q5MIN PRN IVP MODERATE PAIN 4- 6; Start 05/12/21 at 15:00; Stop 05/13/21 at 14:59 Morphine Sulfate (Morphine Sulfate) 1 mg PRN Q10MIN PRN IVP SEVERE PAIN 7-10; Start 05/12/21 at 15:00; Stop 05/13/21 at 14:59 Ringer's Solution 1,000 ml @ 30 mls/hr Q24H IV ; Start 05/12/21 at 15:00; Stop 05/13/21 at 02:59 Hydromorphone HCl (Dilaudid) 0.5 mg PRN Q10MIN PRN IVP SEVERE PAIN 7-10, 2nd CHOICE; Start 05/12/21 at 15:00; Stop 05/13/21 at 14:59 Prochlorperazine Edisylate (Compazine) 5 mg PACU PRN PRN IVP NAUSEA, MRX1; Start 05/12/21 at 15:00; Stop 05/13/21 at 14:59 Active Scripts Active Prednisone 20 Mg Tablet 2 Tab PO DAILY 5 Days Tramadol Hcl 50 Mg Tablet 1 Tab PO PRN Q6HRS ROS: Review of Systems Review of System Could not obtain from myself Physical Exam: Vital Signs: Vital Signs Date Time Temp Pulse Resp B/P (MAP) Pulse Ox O2 Delivery O2 Flow Rate FiO2 05/12/21 14:55 97.0 69 16 116/67 98 Room Air 97.0 Physcial Exam: GEN: mild distress HEENT: Normal cephalic, atraumatic, external auditory canals are patent EYES: Extraocular muscles are intact, pupil are equally round and reactive to light and accommodation MUSCULOSKELETAL: Well developed , well nourished, good range of motion ENDOCRINE: No thyromegaly was palpated LYMPHATICS: No cervical chain or axillary nodes were noted HEMATOPOIETIC: No bruising NECK: Supple, no JVD, no thyromegaly was noted LUNGS: Clear to auscultation in all lung lara without rhonchi or wheezing HEART: RRR, S1, S2 present. Peripheral pulses intact, no obvious murmurs noted ABDOMEN: diffuse tenderness particularly lower quadrants, normal bowel sounds; EXTREMITIES: Without clubbing, cyanosis, or edema. Pedal pulses intact. Negative Homans sign NEUROLOGIC: Normal speech and tone. A&O x 3, moves all extremities, no obvious focal deficits PSYCHIATRIC: Normal affect, normal mood. Stable SKIN: No ulcerations or rashes, good skin turgor, no jaundice VASCULAR: Good capillary refill, neurovascular bundle appears to be intact Labs: Labs: Laboratory Tests Test 05/12/21 11:45 05/12/21 12:55 White Blood Count 9.6 x10^3/uL (4.0-11.0) Red Blood Count 5.17 x10^6/uL (4.30-5.70) Hemoglobin 15.3 g/dL (13.0-17.5) Hematocrit 44.7 % (39.0-53.0) Mean Corpuscular Volume 87 fL (79-100) Mean Corpuscular Hemoglobin 30 pg (25-35) Mean Corpuscular Hemoglobin Concent 34 g/dL (31-37) Red Cell Distribution Width 12.1 % (11.5-14.5) Platelet Count 191 x10^3/uL (140-400) Neutrophils (%) (Auto) 76 % (31-73) Lymphocytes (%) (Auto) 16 % (24-48) Monocytes (%) (Auto) 6 % (0-9) Eosinophils (%) (Auto) 1 % (0-3) Basophils (%) (Auto) 1 % (0-3) Neutrophils # (Auto) 7.3 x10^3/uL (1.8-7.7) Lymphocytes # (Auto) 1.6 x10^3/uL (1.0-4.8) Monocytes # (Auto) 0.6 x10^3/uL (0.0-1.1) Eosinophils # (Auto) 0.1 x10^3/uL (0.0-0.7) Basophils # (Auto) 0.0 x10^3/uL (0.0-0.2) Sodium Level 139 mmol/L (136-145) Potassium Level 3.9 mmol/L (3.5-5.1) Chloride Level 101 mmol/L (98-107) Carbon Dioxide Level 30 mmol/L (21-32) Anion Gap 8 (6-14) Blood Urea Nitrogen 14 mg/dL (8-26) Creatinine 0.9 mg/dL (0.7-1.3) Estimated GFR (Cockcroft-Gault) 90.4 BUN/Creatinine Ratio 16 (6-20) Glucose Level 108 mg/dL (70-99) Calcium Level 8.5 mg/dL (8.5-10.1) Total Bilirubin 0.6 mg/dL (0.2-1.0) Aspartate Amino Transf (AST/SGOT) 34 U/L (15-37) Alanine Aminotransferase (ALT/SGPT) 43 U/L (16-63) Alkaline Phosphatase 62 U/L (46-116) Total Protein 8.1 g/dL (6.4-8.2) Albumin 4.2 g/dL (3.4-5.0) Albumin/Globulin Ratio 1.1 (1.0-1.7) Lipase 51 U/L (73-393) Urine Collection Type Unknown Urine Color Yellow Urine Clarity Clear Urine pH 6.5 (<5.0-8.0) Urine Specific [place] >=1.030 (1.000-1.030) Urine Protein Negative mg/dL (NEG-TRACE) Urine Glucose (UA) Negative mg/dL (NEG) Urine Ketones (Stick) Negative mg/dL (NEG) Urine Blood Negative (NEG) Urine Nitrite Negative (NEG) Urine Bilirubin Negative (NEG) Urine Urobilinogen Dipstick 0.2 mg/dL (0.2 mg/dL) Urine Leukocyte Esterase Negative (NEG) Urine RBC 0 /HPF (0-2) Urine WBC Occ /HPF (0-4) Urine Squamous Epithelial Cells Occ /LPF Urine Bacteria 0 /HPF (0-FEW) Laboratory Tests Test 05/12/21 11:45 05/12/21 12:55 White Blood Count 9.6 x10^3/uL (4.0-11.0) Red Blood Count 5.17 x10^6/uL (4.30-5.70) Hemoglobin 15.3 g/dL (13.0-17.5) Hematocrit 44.7 % (39.0-53.0) Mean Corpuscular Volume 87 fL (79-100) Mean Corpuscular Hemoglobin 30 pg (25-35) Mean Corpuscular Hemoglobin Concent 34 g/dL (31-37) Red Cell Distribution Width 12.1 % (11.5-14.5) Platelet Count 191 x10^3/uL (140-400) Neutrophils (%) (Auto) 76 % (31-73) Lymphocytes (%) (Auto) 16 % (24-48) Monocytes (%) (Auto) 6 % (0-9) Eosinophils (%) (Auto) 1 % (0-3) Basophils (%) (Auto) 1 % (0-3) Neutrophils # (Auto) 7.3 x10^3/uL (1.8-7.7) Lymphocytes # (Auto) 1.6 x10^3/uL (1.0-4.8) Monocytes # (Auto) 0.6 x10^3/uL (0.0-1.1) Eosinophils # (Auto) 0.1 x10^3/uL (0.0-0.7) Basophils # (Auto) 0.0 x10^3/uL (0.0-0.2) Sodium Level 139 mmol/L (136-145) Potassium Level 3.9 mmol/L (3.5-5.1) Chloride Level 101 mmol/L (98-107) Carbon Dioxide Level 30 mmol/L (21-32) Anion Gap 8 (6-14) Blood Urea Nitrogen 14 mg/dL (8-26) Creatinine 0.9 mg/dL (0.7-1.3) Estimated GFR (Cockcroft-Gault) 90.4 BUN/Creatinine Ratio 16 (6-20) Glucose Level 108 mg/dL (70-99) Calcium Level 8.5 mg/dL (8.5-10.1) Total Bilirubin 0.6 mg/dL (0.2-1.0) Aspartate Amino Transf (AST/SGOT) 34 U/L (15-37) Alanine Aminotransferase (ALT/SGPT) 43 U/L (16-63) Alkaline Phosphatase 62 U/L (46-116) Total Protein 8.1 g/dL (6.4-8.2) Albumin 4.2 g/dL (3.4-5.0) Albumin/Globulin Ratio 1.1 (1.0-1.7) Lipase 51 U/L (73-393) Urine Collection Type Unknown Urine Color Yellow Urine Clarity Clear Urine pH 6.5 (<5.0-8.0) Urine Specific [place] >=1.030 (1.000-1.030) Urine Protein Negative mg/dL (NEG-TRACE) Urine Glucose (UA) Negative mg/dL (NEG) Urine Ketones (Stick) Negative mg/dL (NEG) Urine Blood Negative (NEG) Urine Nitrite Negative (NEG) Urine Bilirubin Negative (NEG) Urine Urobilinogen Dipstick 0.2 mg/dL (0.2 mg/dL) Urine Leukocyte Esterase Negative (NEG) Urine RBC 0 /HPF (0-2) Urine WBC Occ /HPF (0-4) Urine Squamous Epithelial Cells Occ /LPF Urine Bacteria 0 /HPF (0-FEW) Assessment/Plan Assessment/Plan Acute Appendicitis -Patient presenting with abdominal pain. Emergency room imaging consistent with acute appendicitis -Consult surgery planning for appendectomy today -N.p.o. -Pain control as needed -No home meds to resume -Diet as tolerated after surgery -Will again evaluate patient once surgery complete Justifications for Admission Other Justification HILDA ENAMORADO MD May 12, 2021 15:25
[2021-05-12] MEDS ORDERED: ELECTROLYTE (NON-ICU) PROTOCOL. MC PRN (15:30)
[2021-05-12] MEDS ORDERED: ZOLPIDEM 5 MG TABLET. PO PRN (15:30)
[2021-05-12] MEDS ORDERED: CALCIUM CARBONATE 500 MG TAB.CHEW PO PRN (15:30)
[2021-05-12] MEDS ORDERED: ACETAMINOPHEN 325 MG TABLET. PO PRN (15:30)
[2021-05-12] MEDS ORDERED: MORPHINE SULFATE 2 MG/ML INJ. IV PRN ×2 (15:30)
[2021-05-12] MEDS ORDERED: NEOSTIGMINE METHYLSULFATE 5 MG/5 ML SYRINGE. ONE (16:02)
[2021-05-12] MEDS ORDERED: GLYCOPYRROLATE 1 MG/5 ML VIAL. ONE (16:02)
[2021-05-12] MEDS ORDERED: PROPOFOL 10 MG/ML (20ML) VIAL. IV ONE (16:15)
[2021-05-12] MEDS ORDERED: SEVOFLURANE 31 TO 60 MINUTES. IH ONE (16:16)
[2021-05-12] MEDS ORDERED: LIDOCAINE 2% PF 5 ML VIAL. ONE (16:16)
[2021-05-12] MEDS ORDERED: ONDANSETRON PF 4 MG/2 ML VIAL. ONE (16:16)
[2021-05-12] MEDS ORDERED: DEXAMETHASONE SOD PHOS 4 MG/ML VIAL ONE (16:16)
[2021-05-12] MEDS ORDERED: KETOROLAC 30 MG/ML VIAL. ONE (16:17)
--- NOTE | 2021-05-12 16:22 | PDOC4 ---
Operative Note Operative Note Date: 2021-05-12 at 1619 Preoperative diagnosis: Acute appendicitis Postoperative diagnosis: Same Procedure: Laparoscopic appendectomy Surgeon: Demetrius Specimen: Gallbladder Dictation: Patient is 45-year-old male who was mated to the hospital with a CT scan findings consistent with acute appendicitis. The procedure of laparoscopic appendectomy was explained to the patient detail there is an esthetic dermatologist all risk benefits were also discussed occluding bleeding infection injury to intra- abdominal contents possible necessitating further open operations alternatives to this procedure also discussed with the patient who seemed to understand and gave a verbal written consent to have the procedure performed. Patient was taken to the operating room placed in supine position general anesthesia was initiated once patient was sleeping intubated his abdomen was prepped and draped usual sterile fashion using ChloraPrep. An area just above his umbilicus was injected with quarter percent Marcaine with epinephrine incision was made 11 blade scalpel a varies needle was placed into the abdomen creating pneumoperitoneum once this was complete 12 mm port was placed and a 5 mm camera is placed within the abdomen which was inspected was noted to the appendix was retrocecal there was some free fluid around the appendix. A 5 mm port was placed low in the midline under direct visualization and a second 5 mm port was placed in the right midabdomen. The appendix was grasped retracted towards the anterior abdominal wall a window was propagated through the mesoappendix with [place] dissector and Endo MANDY stapler was used to staple and transect the base of the appendix a second load was used to staple and transect the mesoappendix the appendix was then placed in Endo Catch bag and removed the umbilicus the right lower quadrant is irrigated and suctioned dry hemostasis deemed be appropriate the pneumoperitoneum was reduced all ports were removed the fascial defect at the umbilicus was closed with a [id number] 0 Vicryl suture and the skin was reapproximated all port sites for subcuticular Monocryl Mastisol Steri-Strips and island dressings were applied. Patient was awakened and extubated in the operating room taken to recovery in stable condition all sponge instrument needle counts listed as correct estimated blood loss 10 mL RAPHAEL AWAD MD May 12, 2021 16:22
[2021-05-12] MEDS ORDERED: ePHEDrine PF IN SALINE 50 MG/10 ML SYRINGE. IV ONE (16:26)
[2021-05-12] MEDS ORDERED: oxyCODONE/APAP 5/325 1 TAB TABLET PO PRN ×2 (16:30)
--- NOTE | 2021-05-12 16:31 | EKG ---
[facility] [address] [place] [address] Test Date: 2021-05-12 Test Time: 11:34:13 Pat Name: Alfred Carson Department: Room: [facility] Gender: M Advanced Manufacturing Technician: : 1975 Requested By: ZHENG ALEXANDER Order Number: [id number] Reading MD: Usman Cameron Measurements Intervals Spring Rate: 54 P: MO: QRS: 133 QRSD: 102 T: 130 QT: 390 QTc: 371 Interpretive Statements SINUS RHYTHM INCOMPLETE RIGHT BUNDLE BRANCH BLOCK QRS(T) CONTOUR ABNORMALITY CONSISTENT WITH HIGH LATERAL INFARCT AGE UNDETERMINED T ABNORMALITY IN LATERAL LEADS ABNORMAL ECG RI6.01 No previous ECG available for comparison Electronically Signed On 05-15-2021 9:21:34 BIOMEDICAL EQUIPMENT SUPPORT SPECIALIST by Usman Cameron
[2021-05-12] MEDS: fentaNYL PF VIAL 100 MCG/2 ML VIAL IVP PRN ×2 (17:04→17:18)
[2021-05-12] MEDS ORDERED: FLU VACC QUAD 21-22 (6MOS+) PF 0.5 ML SYRINGE. VAX IM ONE (17:45)
[2021-05-12] MEDS ORDERED: INSULIN LISPRO 300 UNITS/3 ML VIAL. SQ ONE (19:00)
[2021-05-12] MEDS: PIPERACILLIN/TAZOBACTAM 3.375 GM in IV NORMAL SALINE 50ML 50 ML IV SCH (19:26)
--- NOTE | 2021-05-12 20:25 | NUR ---
Humalog order placed on wrong patient by JAMIA Ibarra.
[2021-05-12] MEDS: SENNOSIDES/DOCUSATE 8.6/50MG TABLET. PO SCH (21:00)
[2021-05-13] MEDS: PIPERACILLIN/TAZOBACTAM 3.375 GM in IV NORMAL SALINE 50ML 50 ML IV SCH ×3 (00:04→12:00)
[2021-05-13 03:00] VITALS: BP 95/51
[2021-05-13 07:00] VITALS: BP 96/45
[2021-05-13 07:19] LABS: BASO % 0 % (0-3); EOS % 0 % (0-3); HEMATOCRIT 40.9 % (39.0-53.0); HEMOGLOBIN 13.9 g/dL (13.0-17.5); LYMPH # 1.1 x10^3/uL (1.0-4.8); LYMPH % 9 % (24-48); MEAN CORPUSCULAR HEMOGLOBIN 30 pg (25-35); MEAN CORPUSCULAR HGB CONC 34 g/dL (31-37); MEAN CORPUSCULAR VOLUME 87 fL (79-100); MONO # 0.8 x10^3/uL (0.0-1.1); MONO % 7 % (0-9); NEUT # 10.4 x10^3/uL (1.8-7.7); NEUT % 84 % (31-73); PLATELET COUNT 195 x10^3/uL (140-400); RED CELL DISTRIBUTION WIDTH 12.2 % (11.5-14.5); WHITE BLOOD COUNT 12.4 x10^3/uL (4.0-11.0)
[2021-05-13] MEDS: SENNOSIDES/DOCUSATE 8.6/50MG TABLET. PO SCH (08:04)
[2021-05-13 11:00] VITALS: BP 118/59
[2021-05-13] MEDS ORDERED: OXYC1TAB15 PO (11:41)
[2021-05-13] MEDS ORDERED: SENN1TAB99 PO (11:41)
--- NOTE | 2021-05-13 11:45 | DISCH ---
DISCHARGE INSTRUCTIONS Condition on Discharge Condition on Discharge: Stable Activity After Discharge Activity Instructions for Disc: Resume previous activity Lifting Instructions after Dis: Do not lift >10 pounds Exercise Instruction after Dis: Walk 15 min, 3 x per day Driving Instructions after Dis: Do not drive today Weight Bearing Status after Di: As tolerated Diet after Discharge Diet after Discharge: Cardiac Follow-Up Follow up with: PCP within 2 weeks of discharge Follow Up With: Surgery as scheduled with Dr. Romo for postoperative wound check DON HERNANDEZ MD May 13, 2021 11:45
--- NOTE | 2021-05-13 12:19 | PDOC ---
SURGICAL PROGRESS NOTE DATE: 05/13/21 TIME: 12:17 Subjective feeling better, sore would like to eat more than liquids Vital Signs Vital Signs Date Time Temp Pulse Resp B/P (MAP) Pulse Ox O2 Delivery O2 Flow Rate FiO2 05/13/21 12:04 Room Air 05/13/21 11:00 97.9 66 16 118/59 (78) 95 97.9 05/13/21 08:00 6.0 I&O Intake and Output 05/13/21 07:00 Intake Total 1279 ml Output Total 310 ml Balance 969 ml Intake Oral 100 ml IV Total 900 ml Blood Product IV Normal Saline Flush 279 ml Output Urine Total 300 ml Estimated Blood Loss 10 ml # Voids 1 General: Alert, Cooperative Abdomen: Soft, Other (lap dressings dry) Labs Laboratory Tests Test 05/12/21 11:45 05/12/21 12:55 05/13/21 06:15 White Blood Count 9.6 x10^3/uL (4.0-11.0) 12.4 x10^3/uL (4.0-11.0) Red Blood Count 5.17 x10^6/uL (4.30-5.70) 4.70 x10^6/uL (4.30-5.70) Hemoglobin 15.3 g/dL (13.0-17.5) 13.9 g/dL (13.0-17.5) Hematocrit 44.7 % (39.0-53.0) 40.9 % (39.0-53.0) Mean Corpuscular Volume 87 fL (79-100) 87 fL (79-100) Mean Corpuscular Hemoglobin 30 pg (25-35) 30 pg (25-35) Mean Corpuscular Hemoglobin Concent 34 g/dL (31-37) 34 g/dL (31-37) Red Cell Distribution Width 12.1 % (11.5-14.5) 12.2 % (11.5-14.5) Platelet Count 191 x10^3/uL (140-400) 195 x10^3/uL (140-400) Neutrophils (%) (Auto) 76 % (31-73) 84 % (31-73) Lymphocytes (%) (Auto) 16 % (24-48) 9 % (24-48) Monocytes (%) (Auto) 6 % (0-9) 7 % (0-9) Eosinophils (%) (Auto) 1 % (0-3) 0 % (0-3) Basophils (%) (Auto) 1 % (0-3) 0 % (0-3) Neutrophils # (Auto) 7.3 x10^3/uL (1.8-7.7) 10.4 x10^3/uL (1.8-7.7) Lymphocytes # (Auto) 1.6 x10^3/uL (1.0-4.8) 1.1 x10^3/uL (1.0-4.8) Monocytes # (Auto) 0.6 x10^3/uL (0.0-1.1) 0.8 x10^3/uL (0.0-1.1) Eosinophils # (Auto) 0.1 x10^3/uL (0.0-0.7) 0.0 x10^3/uL (0.0-0.7) Basophils # (Auto) 0.0 x10^3/uL (0.0-0.2) 0.0 x10^3/uL (0.0-0.2) Sodium Level 139 mmol/L (136-145) Potassium Level 3.9 mmol/L (3.5-5.1) Chloride Level 101 mmol/L (98-107) Carbon Dioxide Level 30 mmol/L (21-32) Anion Gap 8 (6-14) Blood Urea Nitrogen 14 mg/dL (8-26) Creatinine 0.9 mg/dL (0.7-1.3) Estimated GFR (Cockcroft-Gault) 90.4 BUN/Creatinine Ratio 16 (6-20) Glucose Level 108 mg/dL (70-99) Calcium Level 8.5 mg/dL (8.5-10.1) Total Bilirubin 0.6 mg/dL (0.2-1.0) Aspartate Amino Transf (AST/SGOT) 34 U/L (15-37) Alanine Aminotransferase (ALT/SGPT) 43 U/L (16-63) Alkaline Phosphatase 62 U/L (46-116) Total Protein 8.1 g/dL (6.4-8.2) Albumin 4.2 g/dL (3.4-5.0) Albumin/Globulin Ratio 1.1 (1.0-1.7) Lipase 51 U/L (73-393) Urine Collection Type Unknown Urine Color Yellow Urine Clarity Clear Urine pH 6.5 (<5.0-8.0) Urine Specific [place] >=1.030 (1.000-1.030) Urine Protein Negative mg/dL (NEG-TRACE) Urine Glucose (UA) Negative mg/dL (NEG) Urine Ketones (Stick) Negative mg/dL (NEG) Urine Blood Negative (NEG) Urine Nitrite Negative (NEG) Urine Bilirubin Negative (NEG) Urine Urobilinogen Dipstick 0.2 mg/dL (0.2 mg/dL) Urine Leukocyte Esterase Negative (NEG) Urine RBC 0 /HPF (0-2) Urine WBC Occ /HPF (0-4) Urine Squamous Epithelial Cells Occ /LPF Urine Bacteria 0 /HPF (0-FEW) Laboratory Tests Test 05/12/21 12:55 05/13/21 06:15 Urine Collection Type Unknown Urine Color Yellow Urine Clarity Clear Urine pH 6.5 (<5.0-8.0) Urine Specific [place] >=1.030 (1.000-1.030) Urine Protein Negative mg/dL (NEG-TRACE) Urine Glucose (UA) Negative mg/dL (NEG) Urine Ketones (Stick) Negative mg/dL (NEG) Urine Blood Negative (NEG) Urine Nitrite Negative (NEG) Urine Bilirubin Negative (NEG) Urine Urobilinogen Dipstick 0.2 mg/dL (0.2 mg/dL) Urine Leukocyte Esterase Negative (NEG) Urine RBC 0 /HPF (0-2) Urine WBC Occ /HPF (0-4) Urine Squamous Epithelial Cells Occ /LPF Urine Bacteria 0 /HPF (0-FEW) White Blood Count 12.4 x10^3/uL (4.0-11.0) Red Blood Count 4.70 x10^6/uL (4.30-5.70) Hemoglobin 13.9 g/dL (13.0-17.5) Hematocrit 40.9 % (39.0-53.0) Mean Corpuscular Volume 87 fL (79-100) Mean Corpuscular Hemoglobin 30 pg (25-35) Mean Corpuscular Hemoglobin Concent 34 g/dL (31-37) Red Cell Distribution Width 12.2 % (11.5-14.5) Platelet Count 195 x10^3/uL (140-400) Neutrophils (%) (Auto) 84 % (31-73) Lymphocytes (%) (Auto) 9 % (24-48) Monocytes (%) (Auto) 7 % (0-9) Eosinophils (%) (Auto) 0 % (0-3) Basophils (%) (Auto) 0 % (0-3) Neutrophils # (Auto) 10.4 x10^3/uL (1.8-7.7) Lymphocytes # (Auto) 1.1 x10^3/uL (1.0-4.8) Monocytes # (Auto) 0.8 x10^3/uL (0.0-1.1) Eosinophils # (Auto) 0.0 x10^3/uL (0.0-0.7) Basophils # (Auto) 0.0 x10^3/uL (0.0-0.2) Problem List Problems Medical Problems: (1) Appendicitis Status: Acute Assessment/Plan s/p appy ambulate, advance diet--then can dc home Justicifation of Admission Dx: Justifications for Admission: Justification of Admission Dx: Yes Comments: appendicitis ROMULO KEMP RECREATION AIDE May 13, 2021 12:19
--- NOTE | 2021-05-13 13:30 | NUR ---
SW following. Discussed with RN, pt from home with family, room air. Discharge order for home with self care. RN advised no SW needs.
[2021-05-13 15:00] VITALS: BP 123/60
--- NOTE | 2021-05-13 18:11 | NUR ---
patient discharged from hospital with family and all discharge information.
--- NOTE | 2021-05-15 11:17 | PDOC3 ---
[facility]-Discharge Summary Date of Admission: Date of Admission: May 12, 2021 Date of Discharge: Date of Discharge: May 13, 2021 Discharge Diagnosis: Discharge Diagnosis: Acute Appendicitis Hospital Course: Hospital Course: Could not ask as r&d lab technician line, HPI from emergency room Patient is a 45 year old Norwegian speaking male without pertinent past medical h istory who presents with left lower quadrant pain starting at 8:30 AM this morning. Has worsened consistently since. Denies nausea, vomiting, or diarrhea. Denies bloody stools. Denies dysuria, urgency, frequency, or hematuria. Tried ibuprofen which did not help his pain. No history of similar pain in the past. Patient underwent laparoscopic appendectomy and tolerated procedure well. No major complications. By time of discharge patient was able to ambulate and tolerate diet. Pain was well controlled. Rest of hospital course was uneventful Disposition: Disposition/Orders: D/C to Home Activity: Activity: Resume previous activity Diet: Diet: Regular Medications: Home Meds Active Scripts Sennosides/Docusate Sodium (Senna-Docusate Sodium Tablet) 1 Each Tablet, 1 TAB PO DAILY PRN for CONSTIPATION for 20 Days, #20 TAB 0 Refills Prov:DON HERNANDEZ MD 05/13/21 Oxycodone/Apap 5-325 (PERCOCET 5-325 MG TABLET ) 1 Each Tablet, 1 TAB PO PRN Q6-8HRS PRN for PAIN for 3 Days, #12 TAB Prov:DON HERNANDEZ MD 05/13/21 Discontinued Reported Medications Info (NO KNOWN MEDICATIONS PRIOR TO ADMISSTION) Each, 1 EACH MC 1X for per pt , EACH 05/12/21 Scheduled PRN Oxycodone/Apap 5-325 (Percocet 5-325 Mg Tablet ), 1 TAB PO PRN Q6-8HRS PRN for PAIN Sennosides/Docusate Sodium (Senna-Docusate Sodium Tablet), 1 TAB PO DAILY PRN for CONSTIPATION Discontinued Medications Info (No Known Medications Prior To Admisstion), 1 EACH MC 1X, (Reported) Total Time: Total Time: Total time spent was 31 minutes in preparing scripts, discharge planning with SWI and RN and preparing this discharge summary Patient seen and examined on day of discharge. No acute abnormal findings. Justicifation of Admission Dx: Justifications for Admission: Justification of Admission Dx: Yes DON HERNANDEZ MD May 15, 2021 11:17
--- NOTE | 2021-05-18 11:08 | PATHOLOGY ---
[facility] Accession Number: [id number] . 01 Material submitted: . appendix - APPENDIX . 01 Clinical history: . LAP APPY APPENDICITIS . 02 Diagnosis: Vermiform appendix, excision: - Dilated lumen with fecalith and features of acute appendicitis, and acute and chronic serositis. - Benign mesothelial cyst. - Negative for malignancy. (MLK:judd; 05/17/2021) MBR 05/18/2021 1009 Local . 02 Electronically signed: . Scotty Boyce MD, Pathologist NPI- [id number] . 01 Gross description: . Fixative: Formalin Labeled: Appendix Appendix length: 6.0 cm Appendix diameter: Up to 0.8 cm Mesoappendix: 2.0 cm Proximal margin: Stapled Serosa: Light nicholas-olsen and smooth to roughened with possible cystic structures near the mid appendix measuring up to 0.1 cm Cut surface: Dilated lumen Luminal diameter: 0.6 cm Perforation: None identified Lesions/abnormalities: Possible cystic structures near mid appendix A1 Proximal margin (inked black) and distal tip, bisected A2 Mid appendix with possible cystic structures ([facility]; 05/16/2021) [facility] 05/16/2021 1128 Local . 02 Pathologist provided ICD-10: K35.80, K65.8, K38.8 . 02 CPT . 328627 Specimen Comment: A courtesy copy of this report has been sent to [phone], [phone] Specimen Comment: [id number], Specimen Comment: Report sent to , DR JACKSON / DR ENAMORADO Performed at: [address], [place] [id number] MD Caleb Patrick MD Phone: [phone] Performed at: [address] [id number] MD Zeferino Freitas MD Phone: [phone]
== END 2021-05-13 18:20 | disposition still patient (30) ==
LOC: EDBD 11:32 → ER 11:32 → INTOOBSV 13:54 → 4 NORTH 13:54 → ER 14:35
PROVIDERS: ADMIT Student in an Organized Health Care Education/Training Program; ATTEND Student in an Organized Health Care Education/Training Program
DX: K35.80 Unspecified acute appendicitis (principal)
CPT/HCPCS: 36415; 44970; 74177; 80053; 81001; 83690; 85025; 93005; 96365; 96366; 96375; 96376; 99285; A4314; A4364; A4930; A6402; G0378; J0330; J1100; J1885; J2270; J2405; J2543; J2704; J2710; J3010; J3490; J7120; Q9967; 88304; G0379